=== PATIENT | male | born 1985 | race African-American/Black ===

== ENCOUNTER 2019-08-13 16:51 | Emergency (ER) | payer OTHER, SELFPAY ==
--- NOTE | ~2019-08-13 | XR_ITS ---
EXAMINATION: XR ankle LT min 3V DATE: 08/13/2019 17:27 INDICATION: Left ankle pain TECHNIQUE: Anteroposterior, lateral, mortise, and additional oblique view of the ankle were obtained. COMPARISON: None. FINDINGS: There is no fracture, dislocation, or subluxation. The bones, soft tissues, and joint space s are normal. IMPRESSION: 1. No acute osseous abnormality. Reviewed, dictated and finalized at location A.
[2019-08-13 17:00] VITALS: BP 134/81; PULSE 71; RESP 16; TEMP 36.8; O2SAT 99
[2019-08-13] MEDS: KETOROLAC (*BKC) 60 MG/2 ML VIAL IM (17:26)
--- NOTE | 2019-08-13 17:55 | ED.GENADULT ---
HPI - General Adult General Chief complaint: Extremity Injury, Lower <CHRISTINA Cr Last Filed: 08/13/19 18:00> Stated complaint: Left Foot Pain <CHRISTINA Cr Last Filed: 08/13/19 18:00> Time Seen by Provider: 08/13/19 16:57 <CHRISTINA Cr Last Filed: 08/13/19 18:00> Source: patient <CHRISTINA Cr Last Filed: 08/13/19 18:00> Mode of arrival: ambulatory <CHRISTINA Cr Last Filed: 08/13/19 18:00> Limitations: no limitations <CHRISTINA Cr Last Filed: 08/13/19 18:00> History of Present Illness HPI narrative: Patient is a 34-year-old male who presents to emergency department for evaluation of left ankle pain for the last week or more after prolonged standing develops ankle pain surrounding the joint worse with activity and movement denies injury or trauma numbness or tingling or other complaints or findings. <CHRISTINA Cr Last Filed: 08/13/19 18:00> Related Data Allergies/adverse reactions: Allergies Allergy/AdvReac Type Severity Reaction Status Date / Time Penicillins Allergy Vomiting Verified 08/13/19 17:07 <CHRISTINA Cr Last Filed: 08/13/19 18:00> Review of Systems Review of Systems: Narrative: GENERAL: Well-appearing, well-nourished, and in no acute distress. HEAD: Normocephalic, atraumatic. EYES: PERRLA and EOMI. ENT: Nares clear, no rhinorrhea or epistaxis. Mucous membranes moist. EXTREMITIES: Normal range of motion. No edema. Tenderness of the ankle joint with no deformity noted SKIN: Warm, dry, no rash. NEURO: No focal deficits. Alert and oriented x3. Neurovascularly intact PSYCH: Normal mood and affect. <CHRISTINA Cr Last Filed: 08/13/19 18:00> All systems reviewed & are unremarkable except as noted in HPI and below <CHRISTINA Cr Last Filed: 08/13/19 18:00> Exam Narrative: Exam Narrative: GENERAL: Well-appearing, well-nourished, and in no acute distress. HEAD: Normocephalic, atraumatic. EYES: PERRLA and EOMI. ENT: Nares clear, no rhinorrhea or epistaxis. Mucous membranes moist. EXTREMITIES: Tenderness of the ankle joint with no deformity noted SKIN: Warm, dry, no rash. NEURO: No focal deficits. Alert and oriented x3. Neurovascularly intact. Capillary refill less than 2 seconds PSYCH: Normal mood and affect. <Ander Chaparro PA-C - Last Filed: 08/13/19 18:00> Course Course Emergency Course: Patient in the room in no distress aware of case findings treatment plan and diagnosis <Ander Chaparro PA-C - Last Filed: 08/13/19 18:00> Vital Signs Vital signs: Vital Signs Temperature 36.8 C 08/13/19 17:00 Pulse Rate 71 08/13/19 17:00 Respiratory Rate 16 08/13/19 17:00 Blood Pressure 134/81 08/13/19 17:00 Pulse Oximetry 99 08/13/19 17:00 Temperature 36.8 C 08/13/19 17:00 Pulse Rate 71 08/13/19 17:00 Respiratory Rate 16 08/13/19 17:00 Blood Pressure 134/81 08/13/19 17:00 Pulse Oximetry 99 08/13/19 17:00 <Ander Chaparro PA-C - Last Filed: 08/13/19 18:00> Vital Signs Temperature 36.8 C 08/13/19 17:00 Pulse Rate 71 08/13/19 17:00 Respiratory Rate 16 08/13/19 17:00 Blood Pressure 134/81 08/13/19 17:00 Pulse Oximetry 99 08/13/19 17:00 Temperature 36.8 C 08/13/19 17:00 Pulse Rate 71 08/13/19 17:00 Respiratory Rate 16 08/13/19 17:00 Blood Pressure 134/81 08/13/19 17:00 Pulse Oximetry 99 08/13/19 17:00 <Debra Arnold MD - Last Filed: 08/13/19 19:24> Medical Decision Making MDM Narrative Medical decision making narrative: Patients injury or pain is consistent with musculoskeletal etiology. No signs of neurological or vascular compromise on exam. Compartments and tisues are soft without signs of compartment syndrome. Pain is felt appropriate for further evaluation on an outpatient basis. <Ander Chaparro PA-C - Last Filed: 08/13/19 18:00>
== END 2019-08-13 18:05 | disposition home or self-care (01) ==
PROVIDERS: Emergency Provider Emergency Medicine
DX: M25.572 Pain in left ankle and joints of left foot (principal)
CPT/HCPCS: 73610; 96372; 99283; J1885